=== PATIENT | female | born 1980 | race Two or more races ===

== ENCOUNTER 2023-06-10 05:00 | Emergency (ER) | payer OTHER ==
[2023-06-10 05:08] VITALS: BP 113/70; PULSE 62; RESP 18; TEMP 98.6; BMI 29.2
[2023-06-10] MEDS: SODIUM CHLORIDE 1,000 ML IV STA (06:04)
[2023-06-10] MEDS: ACETAMINOPHEN 1000 MG/100 ML BAG IVPB ONE (06:04)
[2023-06-10] MEDS: ONDANSETRON 4 MG/2 ML VIAL IVPUSH ONE (06:05)
[2023-06-10 06:34] LABS: BASO % 0.7 % (0-2.0); EOS % 0.1 % (0-4.5); HEMATOCRIT 35.3 % (32.4-45.2); HEMOGLOBIN 11.8 GM/dL (10.7-15.3); LYMPH % 11.9 % (8-40); MCH 29.4 pg (25.7-33.7); MCHC 33.4 g/dl (32.0-36.0); MEAN CELL VOLUME 87.9 fl (80-96); MEAN PLT VOLUME 8.8 fl (7.5-11.1); MONO % 4.3 % (3.8-10.2); PLATELET COUNT 279 10^3/uL (134-434); RBC 4.02 M/mm3 (3.60-5.2); RDW 13.5 % (11.6-15.6); WHITE BLOOD COUNT 15.8 K/mm3 (4.0-10.0)
[2023-06-10 06:38] LABS: EPI CELLS 10 /uL (0-25.1); HYALINE CASTS 1 /uL (0-3.1); PH,URINE 5.5 (5.0-8.0); URINE APPEARANCE TURBID; URINE BACTERIA 6 /uL (0-1359); URINE BILIRUBIN NEGATIVE (NEGATIVE); URINE COLOR RED; URINE GLUCOSE (UA) NEGATIVE (NEGATIVE); URINE KETONE NEGATIVE (NEGATIVE); URINE LEUK ESTERASE 1+ (NEGATIVE); URINE NITRITE NEGATIVE (NEGATIVE); URINE PROTEIN 2+ (NEGATIVE); URINE RBC 26615 /uL (0-23.9); URINE UROBILINOGEN 0.2 mg/dL (0.2-1.0); URINE WBC 29 /uL (0-25.8)
[2023-06-10 06:42] LABS: INR 0.98 (0.83-1.09); PROTHROMBIN TIME (PATIENT) 11.4 SEC (9.7-13.0)
[2023-06-10 06:45] LABS: ACTIVATED PTT 29.5 SECONDS (25.2-36.5)
[2023-06-10 07:02] LABS: POTASSIUM 4.2 mmol/L (3.5-5.1)
[2023-06-10 07:04] LABS: CALCIUM 8.5 mg/dL (8.5-10.1)
[2023-06-10 07:05] LABS: ALBUMIN 3.6 g/dl (3.4-5.0); BLOOD UREA NITROGEN 7.8 mg/dL (7-18)
[2023-06-10 07:08] LABS: CREATININE 0.7 mg/dL (0.55-1.3)
[2023-06-10 07:09] LABS: BILIRUBIN,TOTAL 0.4 mg/dL (0.2-1)
[2023-06-10 07:10] LABS: TOT PROT 7.2 g/dl (6.4-8.2)
== END 2023-06-10 10:34 | disposition home or self-care (01) ==
LOC: JER 05:00
PROC: 3E033NZ Introduction of Analgesics, Hypnotics, Sedatives into Peripheral Vein, Percutaneous Approach (ICD-10-PCS; principal; 2023-06-10)
PROC: 3E033GC Introduction of Other Therapeutic Substance into Peripheral Vein, Percutaneous Approach (ICD-10-PCS; 2023-06-10)
PROC: 3E033GC Introduction of Other Therapeutic Substance into Peripheral Vein, Percutaneous Approach (ICD-10-PCS; 2023-06-10)
PROC: 3E0337Z Introduction of Electrolytic and Water Balance Substance into Peripheral Vein, Percutaneous Approach (ICD-10-PCS; 2023-06-10)
DX: O20.9 Hemorrhage in early pregnancy, unspecified (principal); O26.891 Other specified pregnancy related conditions, first trimester; R10.30 Lower abdominal pain, unspecified; R68.83 Chills (without fever); Z3A.09 9 weeks gestation of pregnancy
CPT/HCPCS: 36415; 76817-TC; 80053; 81003; 84702; 85025; 85610; 85730; 86850; 86900; 86901; 87086; 99284-25; J0131